=== PATIENT | female | born 1990 | race African-American/Black ===

== ENCOUNTER 2017-04-16 03:22 | Emergency (ER) | payer OTHER ==
[~2017-04-16] VITALS: Ht 154.9 cm; Wt 70.3 kg
[~2017-04-16 03:22] MED LIST: FLAGYL500 MG PO
[2017-04-16 03:26] VITALS: BP 161/100
[2017-04-16] MEDS ORDERED: NAPROSYN500 MG PO (03:53)
[2017-04-16] MEDS ORDERED: AMOXICILLIN 50500 M1 PO (03:53)
== END 2017-04-16 04:01 | disposition home or self-care (01) ==
LOC: ER 03:22
DX: K08.89 Other specified disorders of teeth and supporting structures (principal); F17.210 Nicotine dependence, cigarettes, uncomplicated

== ENCOUNTER 2019-10-05 09:29 | Emergency (ER) | payer BC ==
[~2019-10-05] VITALS: Ht 172.7 cm; Wt 72.6 kg
[~2019-10-05 09:29] MED LIST changes: +AMOXICILLIN 50500 M1 PO; +NAPROSYN500 MG PO
[2019-10-05] MEDS ORDERED: AMOXICILLIN500 M1 PO (10:13)
[2019-10-05 10:54] VITALS: BP 138/74
== END 2019-10-05 10:56 | disposition home or self-care (01) ==
LOC: ER 09:29
DX: J02.0 Streptococcal pharyngitis (principal); F17.210 Nicotine dependence, cigarettes, uncomplicated; Z90.49 Acquired absence of other specified parts of digestive tract

== ENCOUNTER 2021-05-26 23:35 | Emergency (ER) | payer BC ==
[~2021-05-26] VITALS: Ht 154.9 cm; Wt 83.9 kg
[~2021-05-26 23:35] MED LIST changes: +AMOXICILLIN500 M1 PO
[2021-05-26 23:40] VITALS: BP 172/99
[2021-05-27] MEDS ORDERED: AMOXICILLIN875 MG PO
== END 2021-05-27 00:10 | disposition home or self-care (01) ==
LOC: ER 23:35
DX: K04.7 Periapical abscess without sinus (principal); F17.210 Nicotine dependence, cigarettes, uncomplicated; Z90.49 Acquired absence of other specified parts of digestive tract